=== PATIENT | female | born 1980 ===

== ENCOUNTER 2022-01-04 03:37 | Observation (INO) | payer BC ==
[2022-01-04] MEDS ORDERED: Lactated Ringers 1,000 ML IV ONE (04:19)
[2022-01-04] MEDS ORDERED: Sodium Chloride 0.9% 10 ML Syringe FLUSH PRN (04:19)
[2022-01-04] MEDS ORDERED: Morphine 2 MG/ML SYRINGE IVPUSH ONE (04:29)
[2022-01-04] MEDS ORDERED: Ondansetron 4 MG/2 ML SDV IVPUSH ONE (04:29)
[2022-01-04 04:39] LABS: CORONAVIRUS COVID-19 NAA NEGATIVE (NEGATIVE); RESPIRATORY SYNCYTIAL VIR NAA NEGATIVE (NEGATIVE)
[2022-01-04 04:42] LABS: CHLORIDE,CL 99 mmol/L (98-107); SODIUM,NA 138 mmol/L (136-145)
[2022-01-04 04:44] LABS: ANION GAP 20.3 meq/L (7-15)
[2022-01-04] MEDS ORDERED: Potassium Chloride 20 MEQ Tab.ER PO ONE ×2 (04:47→07:07)
[2022-01-04] MEDS ORDERED: Magnesium Sulfate/Water 2 GM in Premix Bag 1 BAG IV ONE (04:51)
[2022-01-04] MEDS ORDERED: Acetaminophen 325 MG Tab PO PRN (05:17)
[2022-01-04] MEDS ORDERED: Ondansetron 4 MG/2 ML SDV IVPUSH PRN (05:22)
[2022-01-04] MEDS ORDERED: Morphine 2 MG/ML SYRINGE IVPUSH PRN (05:22)
[2022-01-04] MEDS ORDERED: Lactated Ringers 1,000 ML IV SCH (05:30)
[2022-01-04] MEDS: Potassium Chloride Riders 10 MEQ in Premix Bag 1 BAG IV SCH ×4 (05:36→10:25)
[2022-01-04 12:19] LABS: CHLORIDE,CL 100 mmol/L (98-107); SODIUM,NA 134 mmol/L (136-145)
[2022-01-04 12:20] LABS: ANION GAP 17.2 meq/L (7-15)
[2022-01-04 15:32] LABS: CHLORIDE,CL 104 mmol/L (98-107); SODIUM,NA 137 mmol/L (136-145)
[2022-01-04 15:46] LABS: ANION GAP 16.5 meq/L (7-15)
== END 2022-01-04 17:15 | disposition home or self-care (01) ==
LOC: LL.ED 03:37 → LL.MS 05:09
PROVIDERS: ADMIT Hospitalist; ATTEND Hospitalist
DX: K52.9 Noninfective gastroenteritis and colitis, unspecified (principal); E87.6 Hypokalemia; E83.42 Hypomagnesemia; Z20.822 Contact with and (suspected) exposure to COVID-19
CPT/HCPCS: 0241U; 36415; 80048; 80053; 81001; 82150; 83605; 83690; 83735; 84703; 85025; 86140; 87210; 96365; 96374; 96375; 96376; 99284-25; A9270-GY; G0378; J2270; J2405; J3475; J3480; J7120